=== PATIENT | male | born 1965 | race Hispanic/Latino ===

== ENCOUNTER 2017-12-04 18:36 | Inpatient (IN) | payer BC ==
[2017-12-04] MEDS ORDERED: Heparin25000 units/250ml 1/2NS 25,000 UNITS/250 ML BAG IV STA (19:24)
[2017-12-04] MEDS ORDERED: diltiaZEM IVPB 100mg in NS 100 ML IV PRN (19:24)
[2017-12-04 19:30] LABS: BASO # 0.04 K/mm3 (0.0-2.0); BASO % 0.4 % (0.0-3.0); EOS # 0.1 (0.0-0.7); EOS % 1.3 % (1.5-5.0); GRAN # 4.79 (1.4-6.5); GRAN % 53.4 % (50.0-68.0); HEMOGLOBIN 17.8 g/dL (14.0-18.0); LYMPH # 2.8 (1.2-3.4); LYMPH % 31.1 % (22.0-35.0); MEAN CELL VOLUME 91.3 fl (80.0-105.0); MEAN CORPUSCULAR HEMOGLOBIN 33.8 pg (25.0-35.0); MEAN CORPUSCULAR HGB CONC 37.1 g/dl (31.0-37.0); MEAN PLATELET VOLUME 9.6 fl (7.0-11.0); MONO # 1.2 (0.1-0.6); MONO % 13.8 % (1.0-6.0); RBC 5.26 10^6/uL (3.5-6.1); RED CELL DISTRIBUTION WIDTH 12.9 % (11.5-14.5)
--- NOTE | 2017-12-04 19:31 | ED PDOC ---
Arrival/HPI - General Chief Complaint: Chest Pain Time Seen by Provider: 12/04/17 19:04 Historian: Patient - History of Present Illness Narrative History of Present Illness (Text): 12/04/17 19:27 52yo male with pmhx of hypertension who was referred to ED by his PMD. Patient states he started having palpitation and diaphoretic this morning. He saw his PMD and had a new onset afib with rapid response on the EKG they did at the clinic. He denies chest pain, dizziness, nausea, headache, focal weakness, abdominal pain, vomiting, any other complaint. Past Medical History - Provider Review Nursing Documentation Reviewed: Yes - Infectious Disease Hx of Infectious Diseases: None - Cardiac Hx Cardiac Disorders: Yes Hx Hypertension: Yes - Pulmonary Hx Respiratory Disorders: No - Neurological Hx Neurological Disorder: No - HEENT Hx HEENT Disorder: No - Renal Hx Renal Disorder: No - Endocrine/Metabolic Hx Endocrine Disorders: No - Hematological/Oncological Hx Blood Disorders: No - Integumentary Hx Dermatological Disorder: No - Musculoskeletal/Rheumatological Hx Musculoskeletal Disorders: No - Gastrointestinal Hx Gastrointestinal Disorders: No - Genitourinary/Gynecological Hx Genitourinary Disorders: No - Psychiatric Hx Psychophysiologic Disorder: Yes Hx Anxiety: Yes Hx Depression: Yes Hx Substance Use: No Family/Social History - Physician Review Nursing Documentation Reviewed: Yes Family/Social History: Unknown Family HX Smoking Status: Never Smoked Hx Alcohol Use: Yes Frequency of alcohol use: Socially Hx Substance Use: No Allergies/Home Meds Allergies/Adverse Reactions: Allergies No Known Allergies Allergy (Verified 12/04/17 19:13) Review of Systems - Physician Review All systems were reviewed & negative as marked: Yes - Review of Systems Constitutional: Normal Eyes: Normal ENT: Normal Respiratory: Normal Cardiovascular: Palpitations. absent: Chest Pain, Edema, Calf Pain, EMANUEL Gastrointestinal: Normal Genitourinary Male: Normal Musculoskeletal: Normal Skin: Normal Neurological: Normal Endocrine: Normal Hemo/Lymphatic: Normal Psychiatric: Normal Physical Exam Vital Signs Reviewed: Yes Vital Signs Temp Pulse Resp BP Pulse Ox 12/04/17 19:58 107 H 143/96 H 12/04/17 19:03 98.2 F 108 H 18 155/90 H 98 Temperature: Afebrile Blood Pressure: Normal Pulse: Tachycardic Respiratory Rate: Normal Appearance: Positive for: Well-Appearing, Non-Toxic, Comfortable Pain Distress: None Mental Status: Positive for: Alert and Oriented X 3 - Systems Exam Head: Present: Atraumatic, Normocephalic Pupils: Present: PERRL Extroacular Muscles: Present: EOMI Conjunctiva: Present: Normal Mouth: Present: Moist Mucous Membranes Neck: Present: Normal Range of Motion Respiratory/Chest: Present: Clear to Auscultation, Good Air Exchange. No: Respiratory Distress, Accessory Muscle Use Cardiovascular: Present: Regular Rate and Rhythm, Normal S1, S2. No: Murmurs Abdomen: No: Tenderness, Distention, Peritoneal Signs Back: Present: Normal Inspection Upper Extremity: Present: Normal Inspection. No: Cyanosis, Edema Lower Extremity: Present: Normal Inspection. No: Edema Neurological: Present: GCS=15, CN II-XII Intact, Speech Normal Skin: Present: Warm, Dry, Normal Color. No: Rashes Psychiatric: Present: Alert, Oriented x 3, Normal Insight, Normal Concentration Medical Decision Making ED Course and Treatment: 12/04/17 20:41 52yo male referred to ED for a new onset Afib Pt was tachy on arrival and he continued to complain of palpitation. EKG A fib with RVR; LAD @ 112bpm. NSTEMI CXR NAD Lab was ordered and CE was negative Case was DW dr. Tapia who referred pt to ED and he recommended Cardizem bolus, drip and heparin drip. Pt was admitted to his service and he requested Dr. Weinberg consult. Plan was DW the pt and he agreed. - Lab Interpretations Lab Results: 12/04/17 19:20 12/04/17 19:20 Lab Results 12/04/17 19:20: Thyroxine (T4) 6.3, T3 Uptake 34.6, TSH 3rd Generation 3.18 12/04/17 19:20: Sodium 145, Potassium 3.6, Chloride 106, Carbon Dioxide 28, Anion Gap 15, BUN 9, Creatinine 0.8, Est GFR ( Amer) > 60, Est GFR (Non- Af Amer) > 60, Random Glucose 107, Calcium 9.5, Total Bilirubin 1.2, AST 48, ALT 39, Alkaline Phosphatase 71, Lactate Dehydrogenase 547, Total Creatine Kinase 66, Troponin I 0.05, Total Protein 8.1, Albumin 4.3, Globulin 3.8, Albumin/Globulin Ratio 1.1 12/04/17 19:20: PT 14.3 H, INR 1.25, APTT 31.4 12/04/17 19:20: WBC 9.0, RBC 5.26, Hgb 17.8, Hct 48.0, MCV 91.3, MCH 33.8, MCHC 37.1 H, RDW 12.9, Plt Count 128, MPV 9.6, Gran % 53.4, Lymph % (Auto) 31.1, Lyon % (Auto) 13.8 H, Eos % (Auto) 1.3 L, Baso % (Auto) 0.4, Gran # 4.79, Lymph # (Auto) 2.8, Lyon # (Auto) 1.2 H, Eos # (Auto) 0.1, Baso # (Auto) 0.04 - RAD Interpretation Radiology Orders: 12/04/17 19:14 CHEST PORTABLE [RAD] Stat - Medication Orders Current Medication Orders: diltiaZEM IVPB 100mg in NS (Cardizem 100mg In Ns) 100 mls @ 5 mls/hr IV .Q20H PRN; Protocol; 5 MG/HR PRN Reason: TITRATE PER MD ORDER Last Admin: 12/04/17 19:58 Dose: 5 mg/hr, 5 mls/hr eMAR Start Stop Document 12/04/17 19:58 IT (Rec: 12/04/17 19:58 IT [id number]) Intravenous Solution Start Date 12/04/17 Start Time 19:58 MAR Pulse Rate Document 12/04/17 19:58 IT (Rec: 12/04/17 19:58 IT [id number]) Pulse Rate Pulse Rate (60-90) 84 Titration Intervention Document 12/04/17 19:58 IT (Rec: 12/04/17 19:58 IT [id number]) Titration Intake Waste Amount 0 Container Volume 100 Titration Dosing Titration Dose 5 IV Rate 5 Intake/Decrease Started Discontinued Medications Diltiazem HCl (Cardizem) 10 mg IVP STAT STA Stop: 12/04/17 19:25 Last Admin: 12/04/17 19:58 Dose: 10 mg IVP Administration Document 12/04/17 19:58 IT (Rec: 12/04/17 19:58 IT [id number]) Charges for Administration # of IVP Administrations 1 MAR Pulse and Blood Pressure Document 12/04/17 19:58 IT (Rec: 12/04/17 19:58 IT [id number]) Pulse Pulse Rate (60-90) 107 Blood Pressure Blood Pressure (100/60-150/90) 143/96 Heparin Sodium/Sodium Chloride (Heparin 77323 Units/250ml 1/2 Normal Saline) 25 ,000 units in 250 mls @ 21.114 mls/hr IV .[id number] STA; 18 UNITS/KG/HR PRN Reason: Protocol Stop: 12/04/17 19:25 Last Admin: 12/04/17 20:26 Dose: 18 units/kg/hr, 21.114 mls/hr eMAR Start Stop Document 12/04/17 20:26 IT (Rec: 12/04/17 20:26 IT [id number]) Intravenous Solution Start Date 12/04/17 Start Time 20:26 Titration Intervention Document 12/04/17 20:26 IT (Rec: 12/04/17 20:26 IT [id number]) Titration Intake Waste Amount 0 Container Volume 250 Titration Dosing Titration Dose 18 IV Rate 21.114 Intake/Decrease Started Disposition/Present on Arrival - Present on Arrival Any Indicators Present on Arrival: No History of DVT/PE: No History of Uncontrolled Diabetes: No Urinary Catheter: No History of Decub. Ulcer: No History Surgical Site Infection Following: None - Disposition Have Diagnosis and Disposition been Completed?: Yes Diagnosis: New onset atrial fibrillation Disposition: HOSPITALIZED Disposition Time: 19:30 Patient Plan: Admission Patient Problems: Current Active Problems Problem Status Onset New onset atrial fibrillation Acute Condition: STABLE
[2017-12-04 19:35] LABS: INR 1.25; PARTIAL THROMBOPLASTIN TIME 31.4 Seconds (25.1-36.5); PROTHROMBIN TIME 14.3 SECONDS (9.4-12.5)
[2017-12-04 20:09] LABS: T4 6.3 ug/dL (5.5-11.0)
[2017-12-04 20:10] LABS: T3 UPTAKE 34.6 % (23.0-41.0)
[2017-12-04 20:13] LABS: ALB/GLOB RATIO 1.1 (1.1-1.8); ALBUMIN 4.3 g/dL (3.0-4.8); ALT/SGPT 39 U/L (7-56); AST/SGOT 48 U/L (17-59); BLOOD UREA NITROGEN 9 mg/dL (7-21); CALCIUM 9.5 mg/dL (8.4-10.5); GFR NON-AFRICAN AMERICAN > 60
[2017-12-04 20:25] LABS: TROPONIN I 0.05 ng/mL
[2017-12-04] MEDS ORDERED: Heparin25000 units/250ml 1/2NS 25,000 UNITS/250 ML BAG IV PRN (21:42)
--- NOTE | 2017-12-04 21:44 | ED PDOC ---
Arrival/HPI - General Chief Complaint: Chest Pain Time Seen by Provider: 12/04/17 19:04 Past Medical History - Infectious Disease Hx of Infectious Diseases: None - Cardiac Hx Cardiac Disorders: Yes Hx Hypertension: Yes - Pulmonary Hx Respiratory Disorders: No - Neurological Hx Neurological Disorder: No - HEENT Hx HEENT Disorder: No - Renal Hx Renal Disorder: No - Endocrine/Metabolic Hx Endocrine Disorders: No - Hematological/Oncological Hx Blood Disorders: No - Integumentary Hx Dermatological Disorder: No - Musculoskeletal/Rheumatological Hx Musculoskeletal Disorders: No - Gastrointestinal Hx Gastrointestinal Disorders: No - Genitourinary/Gynecological Hx Genitourinary Disorders: No - Psychiatric Hx Psychophysiologic Disorder: Yes Hx Anxiety: Yes Hx Depression: Yes Hx Substance Use: No Family/Social History Family/Social History: Unknown Family HX Smoking Status: Never Smoked Hx Alcohol Use: Yes Frequency of alcohol use: Socially Hx Substance Use: No Allergies/Home Meds Allergies/Adverse Reactions: Allergies No Known Allergies Allergy (Verified 12/04/17 19:13) Physical Exam Vital Signs Temp Pulse Resp BP Pulse Ox 12/04/17 19:58 107 H 143/96 H 12/04/17 19:03 98.2 F 108 H 18 155/90 H 98 Medical Decision Making ED Course and Treatment: 12/04/17 21:44 as per RN, the order for heparin needs to be adjusted to allow for titration. I basically ordered the typical heparin order in our current computer system - Lab Interpretations Lab Results: 12/04/17 19:20 12/04/17 19:20 Lab Results 12/04/17 19:20: Thyroxine (T4) 6.3, T3 Uptake 34.6, TSH 3rd Generation 3.18 12/04/17 19:20: Sodium 145, Potassium 3.6, Chloride 106, Carbon Dioxide 28, Anion Gap 15, BUN 9, Creatinine 0.8, Est GFR ( Amer) > 60, Est GFR (Non- Af Amer) > 60, Random Glucose 107, Calcium 9.5, Total Bilirubin 1.2, AST 48, ALT 39, Alkaline Phosphatase 71, Lactate Dehydrogenase 547, Total Creatine Kinase 66, Troponin I 0.05, Total Protein 8.1, Albumin 4.3, Globulin 3.8, Albumin/Globulin Ratio 1.1 12/04/17 19:20: PT 14.3 H, INR 1.25, APTT 31.4 12/04/17 19:20: WBC 9.0, RBC 5.26, Hgb 17.8, Hct 48.0, MCV 91.3, MCH 33.8, MCHC 37.1 H, RDW 12.9, Plt Count 128, MPV 9.6, Gran % 53.4, Lymph % (Auto) 31.1, [place] % (Auto) 13.8 H, Eos % (Auto) 1.3 L, Baso % (Auto) 0.4, Gran # 4.79, Lymph # (Auto) 2.8, [place] # (Auto) 1.2 H, Eos # (Auto) 0.1, Baso # (Auto) 0.04 - RAD Interpretation Radiology Orders: 12/04/17 19:14 CHEST PORTABLE [RAD] Stat - Medication Orders Current Medication Orders: diltiaZEM IVPB 100mg in NS (Cardizem 100mg In Ns) 100 mls @ 5 mls/hr IV .Q20H PRN; Protocol; 5 MG/HR PRN Reason: TITRATE PER MD ORDER Last Admin: 12/04/17 19:58 Dose: 5 mg/hr, 5 mls/hr eMAR Start Stop Document 12/04/17 19:58 IT (Rec: 12/04/17 19:58 IT [id number]) Intravenous Solution Start Date 12/04/17 Start Time 19:58 MAR Pulse Rate Document 12/04/17 19:58 IT (Rec: 12/04/17 19:58 IT [id number]) Pulse Rate Pulse Rate (60-90) 84 Titration Intervention Document 12/04/17 19:58 IT (Rec: 12/04/17 19:58 IT [id number]) Titration Intake Waste Amount 0 Container Volume 100 Titration Dosing Titration Dose 5 IV Rate 5 Intake/Decrease Started Heparin Sodium/Sodium Chloride (Heparin 19516 Units/250ml 1/2 Normal Saline) 25 ,000 units in 250 mls @ 21.114 mls/hr IV .[id number] PRN; Protocol; 18 UNITS/KG/HR PRN Reason: ADJUST RATE PER PROTOCOL Discontinued Medications Diltiazem HCl (Cardizem) 10 mg IVP STAT STA Stop: 12/04/17 19:25 Last Admin: 12/04/17 19:58 Dose: 10 mg IVP Administration Document 12/04/17 19:58 IT (Rec: 12/04/17 19:58 IT [id number]) Charges for Administration # of IVP Administrations 1 MAR Pulse and Blood Pressure Document 12/04/17 19:58 IT (Rec: 12/04/17 19:58 IT [id number]) Pulse Pulse Rate (60-90) 107 Blood Pressure Blood Pressure (100/60-150/90) 143/96 Heparin Sodium/Sodium Chloride (Heparin 97688 Units/250ml 1/2 Normal Saline) 25 ,000 units in 250 mls @ 21.114 mls/hr IV .[id number] STA; 18 UNITS/KG/HR PRN Reason: Protocol Stop: 12/04/17 19:25 Last Admin: 12/04/17 20:26 Dose: 18 units/kg/hr, 21.114 mls/hr eMAR Start Stop Document 12/04/17 20:26 IT (Rec: 12/04/17 20:26 IT [id number]) Intravenous Solution Start Date 12/04/17 Start Time 20:26 Titration Intervention Document 12/04/17 20:26 IT (Rec: 12/04/17 20:26 IT [id number]) Titration Intake Waste Amount 0 Container Volume 250 Titration Dosing Titration Dose 18 IV Rate 21.114 Intake/Decrease Started Disposition/Present on Arrival - Present on Arrival Any Indicators Present on Arrival: No History of DVT/PE: No History of Uncontrolled Diabetes: No Urinary Catheter: No History of Decub. Ulcer: No History Surgical Site Infection Following: None - Disposition Have Diagnosis and Disposition been Completed?: Yes Diagnosis: New onset atrial fibrillation Disposition: HOSPITALIZED Disposition Time: 23:31 Patient Plan: Admission Patient Problems: Current Active Problems Problem Status Onset New onset atrial fibrillation Acute Condition: STABLE
[2017-12-05 00:58] VITALS: BMI 33.1
[2017-12-05] MEDS ORDERED: Heparin25000 units/250ml 1/2NS 25,000 UNITS/250 ML BAG IV PRN (06:46)
--- NOTE | 2017-12-05 08:26 | CON ---
Copied To: Carlos A Xiong MD Attending MD: Carlos A Xiong MD DATE: 12/05/2017 INDICATIONS: Paroxysmal atrial fibrillation. HISTORY OF PRESENT ILLNESS: This is a 52-year-old male, smoker with a history of hypertension who woke up yesterday morning with palpitations, diaphoresis, not feeling well, anxious. He came to the Emergency Room and was found to have atrial fibrillation with rapid ventricular response. He was treated with IV Cardizem, admitted to telemetry. During the night, he reverted to sinus rhythm. This morning, he is comfortable in bed without chest pain or shortness of breath. There is no orthopnea, PND, syncope, presyncope, lightheadedness, dizziness, or vertigo. There is no edema, claudication, fever, chills, cough, sputum production, hemoptysis, abdominal pain, nausea, vomiting, diarrhea, constipation, or melena. PAST MEDICAL HISTORY: Notable for hypertension. He describes chronic anxiety. He drinks up to a pint of hard liquor at night on a daily basis. He smokes a pack of cigarettes per day. He has had cardiac evaluations in the past. In 2001, he apparently underwent a cardiac catheterization, which did not disclose coronary artery disease. About 2 years ago, he had a nuclear stress test, which was apparently unremarkable. There is no history of rheumatic fever, myocardial infarction, angina, congestive heart failure, arrhythmia, stroke, TIA, diabetes, or gout. MEDICATIONS: At the time of admission, are a bit unclear. He takes Wellbutrin, atenolol, and an additional medication, but he does not recall and it is not in the record. ALLERGIES: THERE ARE NO MEDICATION ALLERGIES. SOCIAL HISTORY: He lives at home. 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 He does not exercise and is fairly sedentary. He smokes cigarettes. He drinks alcohol at night on a daily basis. FAMILY HISTORY: Notable for atrial fibrillation. REVIEW OF SYSTEMS: A 10-point review of systems otherwise unremarkable except as noted above. PHYSICAL EXAMINATION: GENERAL: He is a well-developed man lying in bed on telemetry, in no acute distress. VITAL SIGNS: He is currently in sinus rhythm at 67 beats per minute. He is afebrile. Blood pressure 131/93, respirations 18, O2 sat 99% on room air. HEENT: Reveals no neck vein distention, thyromegaly, carotid bruit. Mucous membranes moist. Conjunctiva pink. NECK: Supple. LUNGS: Lung lee clear. HEART: Revealed irregular rhythm. Normal first and second heart sounds. PMI not palpable. ABDOMEN: Soft. Bowel sounds present. No mass, organomegaly, tenderness, rebound, guarding. No CVA tenderness. No palpable abdominal aortic aneurysm. EXTREMITIES: Revealed no cyanosis, clubbing, or edema. NEUROLOGICAL: He is awake, alert, and oriented. PSYCHIATRIC: Normal as to mood and affect. SKIN: Warm and dry. No rash or cellulitis. LABORATORY DATA AND IMAGING: EKG demonstrated atrial fibrillation with leftward axis, ST-T wave changes. Chest x-ray is not interpreted yet, it shows clear lung lee. No infiltrate or effusion by my reading. CBC is unremarkable. PT 14.3, INR 1.25, PTT 3.14, repeat PTT on heparin 114. Electrolytes: BUN, creatinine, blood sugars, LFTs unremarkable. CK 66, troponin 0.05. TFTs unremarkable. IMPRESSION: Cristhian Sosa is a 52-year-old smoker and drinker, who presents with paroxysmal atrial fibrillation with a history of hypertension, anxiety, who converted back to normal sinus rhythm during the night. At this time, I will repeat a troponin level, order an echocardiogram and an EKG. I will start him on metoprolol. We should get a list of his other medications. I have advised him to stop smoking and stop drinking alcohol. He will need some help with these issues. He has chronic anxiety, which requires treatment. He also complains of insomnia, which prompts him to drink alcohol at night. I will review his prior stress test. I will arrange an outpatient stress test for him. He could be out of bed to chair. We will check stool for occult blood. His CHADS score is 1. I will start him on Eliquis for the time being. I will discuss with you whether or not he is a good candidate for long-term anticoagulation. Carlos A Xiong MD BÁRBARA
--- NOTE | 2017-12-05 09:07 | CARD ---
APPROVED REPORT Date of service: 12/04/2017 EKG Measurement Heart [id number] <Conclusion> Atrial fibrillation with rapid ventricular response Left axis deviation/LAHB PRWP V 1 - 6 Moderate voltage criteria for LVH, may be normal variant Possible inferior infarct, age undetermined STTW changes
--- NOTE | 2017-12-05 09:22 | CARD ---
APPROVED REPORT Date of service: 12/05/2017 EKG Measurement Heart [id number] <Conclusion> Normal sinus rhythm, new PRWP V 1 - 6 LAD/LAHB LVH STTW changes
--- NOTE | 2017-12-05 09:33 | RAD ---
Date of service: 12/04/2017 HISTORY: admission COMPARISON: 05/06/2013 FINDINGS: LUNGS: No active pulmonary disease. PLEURA: No significant pleural effusion identified, no pneumothorax apparent. CARDIOVASCULAR: Normal. OSSEOUS STRUCTURES: No significant abnormalities. VISUALIZED UPPER ABDOMEN: Normal. OTHER FINDINGS: None. IMPRESSION: No active disease.
[2017-12-05 18:30] VITALS: RESP 18
--- NOTE | 2017-12-06 05:28 | CON ---
Copied To: Norma Red MD Attending MD: Norma Red MD DATE: 12/05/2017 HISTORY OF PRESENT ILLNESS: Shortly, the patient is 52-year-old male with reported history of questionable attention deficit disorder. The patient also has mood spectrum disorder as well as anxiety. Also the patient has alcohol use disorder. The patient was admitted on the medical site for evaluation of palpitation and diaphoresis. The patient was diagnosed with AFib. Psych consult was called for medication adjustment and evaluation. This investment underwriter had prolonged conversation with Dr. Tapia, primary care physician. As per Dr. Tapia, the patient was recently diagnosed with attention deficit disorder and was prescribed Vyvanse [address] Musa Betancourt. The patient was not doing well on that medication and this medication was changed to Wellbutrin. Dr. Tapia is very concerned about alcohol abuse, insomnia as well as medical issues. This investment underwriter evaluated the patient. 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 The patient reported that he was very stressed out at his work. Also the patient was having family issues. He was going through divorce. The patient also had issues with selling his mother's house and over summer it was very stressful for him. The patient reported that his mind was racing, he was not able to sleep and started to drink alcohol in order to be able to relax and sleep. Apparently the patient started to notice that he is developing tolerance and he needs to have more alcohol in order to get the same effect. The patient reported at times he feels depressed, at times he feels hopeless, at times he feels helpless, but denied any thoughts of killing himself. The patient reported that he was diagnosed with attention deficit disorder by Dr. Betancourt recently. The patient has episodes of irritable mood, mind racing, inability to sleep in the past which lasted more than 2 weeks, but the patient was able to go back to work and perform, but it will take him a lot of efforts. The patient denied history of being admitted to Psychiatric Inpatient Unit. The patient also denied history of suicidal attempts in the past. Vital signs are stable. Temperature 98.1, pulse is 71, blood pressure 153/97, respiration 26 and saturation is 99, 97. Medications reviewed. The patient is on Xanax 0.5 mg 4 times a day schedule. The patient is on Librium, Lopressor. This investment underwriter will start Sonata. The patient was on Wellbutrin in the past but this is up to the medical team if they want to start this medication or not. This investment underwriter educated the patient about naltrexone. The patient was also educated about Sonata. The patient was educated about bipolar disorder because most likely the patient has bipolar type 2. The patient verbalized understanding. Labs reviewed. Coagulation reviewed. Chemistry reviewed, seems to be within normal limits. MENTAL STATUS EXAMINATION: The patient presented to be alert and oriented, pleasant, cooperative. There is no upper extremity shakes. The patient appears to be with constricted affect. Mood described, "I was very stressed out lately". Thought process seems to be goal directed. Thought content, the patient denied visual, auditory, or tactile hallucinations. Denied paranoid ideation. The patient denied thoughts of harming himself or others. Denied intent or plan. IMPRESSION: Most likely the patient has bipolar spectrum disorder, bipolar type 2, rule out adjustment disorder. This investment underwriter did not see any signs of attention deficit disorder. Moreover attention deficit will be diagnosed in early age. 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 PLAN: Definitely the patient's medications need to be adjusted. The patient was educated about possible diagnosis of bipolar disorder. The patient wants to follow up with Dr. Musa Betancourt. This investment underwriter advised the patient to discuss options with his outpatient psychiatrist. The patient does not want to sign himself into the Psychiatric Inpatient Unit. The patient was advised to take medication as prescribed. The patient was advised not to take any stimulants. The patient was on Wellbutrin 150 mg daily, this is up to his primary care physician. Xanax should be continued. Sonata, this investment underwriter implemented; risks, benefits and alternatives were discussed with the patient; the patient is willing to try that medication. Naltrexone was also discussed. 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 This investment underwriter advised to see Dr. Musa Betancourt and [facility]. The patient verbalized understanding. In case of the patient had acute change in mental status, please reconsult, but meanwhile the patient seems to be not in any imminent danger to self or others. Assessment was endorsed to Dr. Tapia, primary care physician. This investment underwriter will sign off. Should you have any questions, give me a call back. Thank you very much. Norma Red MD [email or web address]
--- NOTE | 2017-12-06 07:15 | CARD ---
APPROVED REPORT Date of service: 12/05/2017 EXAM: Two-dimensional and M-mode echocardiogram with Doppler and color Doppler. INDICATION PAF 2D DIMENSIONS Left Atrium (2D)5.4 (1.6-4.0cm)IVSd1.7 (0.7-1.1cm) LVDd4.9 (3.9-5.9cm)PWd1.5 (0.7-1.1cm) LVDs3.2 (2.5-4.0cm)FS (%) 34.5 % LVEF (%)63.5 (>50%) M-Mode DIMENSIONS Aortic Root4.00 (2.2-3.7cm)Aortic Cusp Exc.2.20 (1.5-2.0cm) Aortic Valve AoV Peak Teavmsjw768.0cm/sAoV VTI48.7cmAO Peak GR.19mmHg LVOT Peak Vnmhuguy367.0cm/sLVOT VTI34.40cmAO Mean GR.11mmHg Mitral Valve MV E Yglxnpuw75.1cm/sMV A Bqeddsrt20.6cm/sE/A ratio1.0 TDI Lateral E' Peak V7.21cm/sMedial E' Peak V5.07cm/sE/Lateral E'9.7 E/Medial E'13.8 Pulmonary Valve PV Peak Amuldcwt88.7cm/sPV Peak Grad.4mmHg Tricuspid Valve TR Peak Pezhdpdq308yo/sRAP XYEQCAFU40xxIyTX Peak Gr.16mmHg PYFG21oiOx LEFT VENTRICLE The left ventricle is normal size. Proximal septal thickening is noted. The echo findings are consistent with hypertrophic cardiomyopathy. The echo findings are consistent with left ventricular outflow obstruction. The left ventricular function is normal. The left ventricular ejection fraction is within the normal range. There is normal LV segmental wall motion. RIGHT VENTRICLE The right ventricle is normal size. The right ventricular systolic function is normal. ATRIA The left atrium is moderately dilated. The right atrium size is normal. The interatrial septum is intact with no evidence for an atrial septal defect. AORTIC VALVE The aortic valve is normal in structure. There is no aortic valvular stenosis. MITRAL VALVE The mitral valve is normal in structure. Mitral regurgitation is mild. TRICUSPID VALVE The tricuspid valve is normal in structure. PULMONIC VALVE The pulmonary valve is normal in structure. GREAT VESSELS The aortic root is normal in size. The IVC is normal in size and collapses >50% with inspiration. PERICARDIAL EFFUSION There is no pleural effusion. There is no pericardial effusion. <Conclusion> Dilated LA. Normal LV size and systolic function. Asymmetric septal hypertrophy with resting LV outflow tract gradient of 19 m Hg consistent with IHSS. Mild MR.
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
--- NOTE | 2017-12-06 22:06 | PN ---
Copied To: Cristhian Sinclair MD Attending MD: Cristhian Sinclair MD DATE: 12/06/2017 SUBJECTIVE: The patient is seen lying in bed on telemetry. He remains in sinus rhythm and is comfortable. He states he is committed to stopping tobacco and alcohol abuse. He remains on beta-eliazar and Eliquis. CURRENT MEDICATIONS: Include Eliquis 5 mg b.i.d., Librium p.r.n., Lopressor 25 mg b.i.d., Sonata and Xanax 0.5 mg four times a day. PHYSICAL EXAMINATION GENERAL: He is an anxious-appearing middle-aged man. VITAL SIGNS: Blood pressure is 130/76 with a pulse of 66 and sinus, respirations are 16. He is afebrile. HEENT: No JVD. CHEST: Few scattered rhonchi. HEART: PMI displaced laterally with a systolic murmur noted at the left sternal border. ABDOMEN: Soft, nontender with normoactive bowel sounds. EXTREMITIES: No edema. DIAGNOSTIC DATA: His echocardiogram reveals dilated left atrium with normal LV size and systolic function, asymmetric septal hypertrophy is present with a resting LV outflow tract gradient of 19 mmHg and mild mitral regurgitation was noted. IMPRESSION: 1. Paroxysmal atrial fibrillation, currently in sinus rhythm. 2. Hypertrophic cardiomyopathy. 3. Mild mitral regurgitation. 4. History of tobacco and alcohol abuse. 5. Possible bipolar disorder. RECOMMENDATIONS: Beta-eliazar therapy and Eliquis will be continued for now. If he has no evidence of recurrent atrial fibrillation, switching from an oral anticoagulant aspirin may be adequate. An outpatient stress test is advised. Continued outpatient cardiac followup regarding his hypertrophic cardiomyopathy and paroxysmal atrial fibrillation is advised as well. We will be happy to follow and make further recommendations as appropriate. Cristhian Sinclair MD
[2017-12-07 05:53] VITALS: O2SAT 97
--- NOTE | 2017-12-07 07:28 | CP.PCM.PN ---
Subjective - Date & Time of Evaluation Date of Evaluation: 12/07/17 Time of Evaluation: 07:00 - Subjective Subjective: Stable on 2R. No CP or SOB. V/S noted. RSR PE: Lungs: clear Cor.: S1S2, sys. murmur Abd.: soft Ext.: no edema Neuro.: alert Echo noted: NL LV fx., LVH with DEVIN, mild MR Objective - Vital Signs/Intake and Output Vital Signs (last 24 hours): Temp Pulse Resp BP Pulse Ox 98.2 F 71 18 145/94 H 97 12/07/17 05:52 12/07/17 05:52 12/07/17 05:52 12/07/17 05:52 12/07/17 05:52 Intake and Output: 12/07/17 12/07/17 06:59 18:59 Intake Total 540 Balance 540 - Medications Medications: Current Medications Alprazolam (Xanax) 0.5 mg PO QID SEGUNDO PRN Reason: Protocol Last Admin: 12/06/17 22:14 Dose: 0.5 mg Apixaban (Eliquis) 5 mg PO BID SEGUNDO PRN Reason: Protocol Last Admin: 12/06/17 17:47 Dose: 5 mg Chlordiazepoxide (Librium) 50 mg PO Q8 PRN; Protocol PRN Reason: Restlessness Lisinopril (Zestril) 20 mg PO DAILY SEGUNDO Metoprolol Tartrate (Lopressor) 50 mg PO BID SEGUNDO Zaleplon (Sonata) 5 mg PO HS [facility] Last Admin: 12/06/17 22:14 Dose: 5 mg - Labs Labs: PT 14.3 SECONDS (9.4-12.5) H 12/04/17 19:20 INR 1.25 12/04/17 19:20 APTT 114.1 Seconds (25.1-36.5) H* 12/05/17 02:18 Assessment and Plan - Assessment and Plan (Free Text) Assessment: Palpitations PAF Anxiety HBP LVH with DEVIN on echo, mild MR, NL LV fx. H/O cath 2002: Nl cors. H/O neg nuclear ETT ~ 2 years ago. + tobacco + daily ETOH Plan: Continue metoprolol, Eliquis, lisnopril per Dr. Tapia and Psych. D/C tobacco and ETOH. OK for D/C home with out-pt f/u and nuclear stress testing. Titrate meds on an out-pt. basis. VAIBHAV diet. Needs more physical activity/exercise program
--- NOTE | 2017-12-07 11:05 | PN ---
Copied To: Tru Tapia MD Attending MD: Tru Tapia MD DATE: 12/06/2017 SUBJECTIVE: The patient is a 52-year-old male who was admitted to the [facility] 2 days ago with palpitations, elevated blood pressure. He is known to have a history of hypertension, renal colic. He is status post cholecystectomy, deviated septum surgery, has bilateral carpal tunnel and lumbosacral spine and herniated disc. During his hospital stay, the patient says that prior to hospitalization, his diastolic blood pressure at times could be as high as 120-130 mmHg. EKG showed he was in atrial fibrillation of new onset on admission. When seen, the patient is lying comfortably. He has no complaints. He denies chest pain, palpitations. He does still feels slightly short of breath on ambulation. His significant other is at bedside. He was seen and evaluated by Dr. Xiong, his test engineer as well as Dr. Norma Red, the psychiatrist. PHYSICAL EXAMINATION: VITAL SIGNS: Today, his blood pressure is 125/94. LUNGS: His lungs are clear anteriorly. HEART: Regular. ABDOMEN: Soft and nontender on physical exam. As the diastolic blood pressure is still elevated, I will at this point increase his metoprolol from 25-50 mg twice a day. I will also add on lisinopril 20 mg once a day. We will continue to follow the patient closely. Case to be discussed with his test engineer, Dr. Xiong and Dr. Sinclair to regulate his blood pressure. I feel because of stress at home and on the job, attention should be made to his anxiety as well to better control that as it may very well be driving his blood pressure up. We are continuing with his Xanax. Dr. Green's consult note is appreciated. Tru Tapia MD
[2017-12-07 11:25] VITALS: BP 143/97; PULSE 65; TEMP 98
--- NOTE | 2017-12-08 08:07 | DS ---
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 PAST MEDICAL HISTORY: Significant also for anxiety and depression, work stress with recent divorce, children in college, caring for ill mother, sale of her house and change in job position with additional responsibility. The patient has been smoking a pack of cigarettes a day, increasing his alcohol consumption when the above symptoms occurred. In the past, he has been taking Vyvanse from his psychiatrist, it was recently filled. The patient states that he has not been taking it recently. COURSE OF HOSPITAL STAY: Admitted to medical floor. The patient was treated with IV Cardizem in the ER, then a drip. He converted spontaneously to sinus rhythm, being seen by his alternative energy technician, Dr. Xiong who did a stress test and an echo within the past year. His medications were adjusted. He was started on Eliquis. He was seen by psychiatrist, Dr. Green to discuss his medications. She agreed that he should avoid Vyvanse and other such stimulants in the future in view of his new atrial fibrillation. He is hemodynamically stable, well controlled. I talked to the patient at length on admission and the next day and then again today regarding alcohol abstinence, lifestyle, stress management, etc. He is ready for discharge to home. Prescriptions were called to his drugstore for Eliquis 5 mg b.i.d., metoprolol tartarate 50 mg b.i.d. and Sonata for sleep as well as lisinopril for blood pressure control. He will follow up with me in the office tomorrow and bring all his medicines. I will see him again probably after the long holiday weekend. I will talk about return to work then. FINAL DISCHARGE DIAGNOSES: 1. New-onset atrial fibrillation. 2. Hypertension. 3. Tobacco use. 4. History of depression/anxiety. Sage Tapia MD
== END 2017-12-07 12:47 | disposition home or self-care (01) | DRG 310 ==
LOC: ED 18:36 → ERH 19:22 → 2RNO 22:11
PROVIDERS: ADMIT Internal Medicine; ATTEND Internal Medicine
DX: I48.0 Paroxysmal atrial fibrillation (principal); I10 Essential (primary) hypertension; I42.2 Other hypertrophic cardiomyopathy; I34.0 Nonrheumatic mitral (valve) insufficiency; F10.10 Alcohol abuse, uncomplicated; F32.9 Major depressive disorder, single episode, unspecified; G47.00 Insomnia, unspecified; F90.9 Attention-deficit hyperactivity disorder, unspecified type; F41.9 Anxiety disorder, unspecified; F17.210 Nicotine dependence, cigarettes, uncomplicated; Z90.49 Acquired absence of other specified parts of digestive tract; Z82.0 Family history of epilepsy and other diseases of the nervous system; Z83.3 Family history of diabetes mellitus

== ENCOUNTER 2018-08-02 17:32 | Inpatient (IN) | payer BC ==
[2018-08-02] MEDS ORDERED: Multivitamin (MVI) 10 ML, Thiamine 100 MG, Folic Acid 1 MG in Sodium Chloride 0.9% 1,00... IV ONE (18:03)
[2018-08-02 18:14] VITALS: BMI 36.6
--- NOTE | 2018-08-02 18:29 | ED PDOC ---
Arrival/HPI - General Time Seen by Provider: 08/02/18 17:34 Historian: Patient - History of Present Illness Narrative History of Present Illness (Text): 08/02/18 17:34 Pt is a 52 year old male, with history of anxiety and depression, who requests detox. Patient informs of binge drinking for the last couple of weeks. He informs of multiple episodes of depression. Denies suicidal or homicidal ideation. Patient was seen by Dr. Tapia and was advised to reduce alcohol consumption and adhere to medications. Patient was told by where he is employed to present to [facility] for detox. Patient denies headache, dizziness, fall/trauma, vision changes, abdominal pain, nausea, vomiting, or any other complaints. Time/Duration: < month (binge drinking since couple of weeks) Symptom Onset: Gradual Activities at Onset: Light Context: Home Past Medical History - Provider Review Nursing Documentation Reviewed: Yes - Infectious Disease Hx of Infectious Diseases: None - Cardiac Hx Cardiac Disorders: Yes Hx Hypertension: Yes - Pulmonary Hx Respiratory Disorders: No - Neurological Hx Neurological Disorder: No - HEENT Hx HEENT Disorder: No - Renal Hx Renal Disorder: No - Endocrine/Metabolic Hx Endocrine Disorders: No - Hematological/Oncological Hx Blood Disorders: No - Integumentary Hx Dermatological Disorder: No - Musculoskeletal/Rheumatological Hx Musculoskeletal Disorders: No - Gastrointestinal Hx Gastrointestinal Disorders: No - Genitourinary/Gynecological Hx Genitourinary Disorders: No - Psychiatric Hx Psychophysiologic Disorder: Yes Hx Anxiety: Yes Hx Depression: Yes Hx Substance Use: No Family/Social History - Physician Review Nursing Documentation Reviewed: Yes Family/Social History: Unknown Family HX Smoking Status: Never Smoked Hx Alcohol Use: Yes Hx Substance Use: No Allergies/Home Meds Allergies/Adverse Reactions: Allergies No Known Allergies Allergy (Verified 12/04/17 19:13) Home Medications: Home Meds Medication Instructions Recorded Confirmed ALPRAZolam [Xanax] 1 mg PO TID 08/02/18 08/02/18 Escitalopram [Lexapro] 20 mg PO DAILY 08/02/18 08/02/18 Furosemide [Lasix] 20 mg PO DAILY 08/02/18 08/02/18 Metoprolol Tartrate [Lopressor] 50 mg PO DAILY 08/02/18 08/02/18 diltiaZEM [Cardizem] 60 mg PO TID 08/02/18 08/02/18 Review of Systems - Physician Review All systems were reviewed & negative as marked: Yes - Review of Systems Constitutional: Other (alcohol abuse) Eyes: absent: Vision Changes Gastrointestinal: absent: Abdominal Pain, Nausea, Vomiting Musculoskeletal: absent: Other (fall/trauma) Neurological: absent: Headache, Dizziness Psychiatric: absent: Suicidal Ideation, Other (homicidal ideation) Physical Exam Vital Signs Reviewed: Yes Vital Signs Pulse BP 08/02/18 18:18 135 H 181/93 H Blood Pressure: Hypertensive Pulse: Tachycardic Appearance: Positive for: Well-Appearing, Comfortable Pain Distress: None Mental Status: Positive for: Alert and Oriented X 3 - Systems Exam Head: Present: Atraumatic, Normocephalic Pupils: Present: PERRL Extroacular Muscles: Present: EOMI Conjunctiva: Present: Normal Mouth: Present: Moist Mucous Membranes Neck: Present: Normal Range of Motion Respiratory/Chest: Present: Clear to Auscultation, Good Air Exchange. No: Respiratory Distress, Accessory Muscle Use, Wheezes, Rales, Rhonchi Cardiovascular: Present: Normal S1, S2, Irregular Rhythm, Tachycardic. No: Murmurs, Rub, Gallop Abdomen: Present: Normal Bowel Sounds. No: Tenderness, Distention, Peritoneal Signs, Rebound, Guarding Back: Present: Normal Inspection Upper Extremity: Present: Normal Inspection, Normal ROM, NORMAL PULSES, Neurovascularly Intact, Capillary Refill < 2s. No: Cyanosis, Edema Lower Extremity: Present: Normal Inspection, NORMAL PULSES, Normal ROM, Neurovascularly Intact, Capillary Refill < 2 s. No: Edema Neurological: Present: GCS=15, CN II-XII Intact, Speech Normal Skin: Present: Warm, Dry, Normal Color. No: Rashes Psychiatric: Present: Alert, Oriented x 3, Normal Insight, Normal Concentration Medical Decision Making ED Course and Treatment: 08/02/18 17:34 Impression: Patient is a 52 year old male, with a past medical history of anxiety and depression, who presents to the emergency department requesting alcohol detox. Plan: -- Labs -- Chest X- Ray -- IV Fluids -- Cardizem -- Librium -- Urinalysis -- Reassess and disposition Prior Visits: Notes and results from previous visits were reviewed. Progress Notes: - RAD Interpretation Narrative RAD Interpretations (Text): 08/02/18 18:55 Chest X-Ray shows: IMPRESSION: No focal consolidation. Right hilar prominence may be exaggerated by patient obliquity. Radiology Orders: 08/02/18 18:01 CHEST PORTABLE [RAD] Stat Revenue Field Auditor: Radiologist - Medication Orders Current Medication Orders: Multivitamins/Vitamin C 10 ml/Thiamine HCl 100 mg/ Folic Acid 1 mg/ Sodium Chloride 1,011.2 mls @ 100 mls/hr IV .Q10H7M ONE Stop: 08/03/18 04:09 Discontinued Medications Chlordiazepoxide (Librium) 50 mg PO STAT STA; Protocol Stop: 08/02/18 18:06 Last Admin: 08/02/18 18:17 Dose: 50 mg Diltiazem HCl (Cardizem) 15 mg IVP STAT STA Stop: 08/02/18 18:03 Diltiazem HCl (Cardizem) 20 mg IVP STAT STA Stop: 08/02/18 18:03 Last Admin: 08/02/18 18:18 Dose: 20 mg IVP Administration Document 08/02/18 18:18 TROIL (Rec: 08/02/18 18:18 [facility]ER-20) Charges for Administration # of IVP Administrations 1 MAR Pulse and Blood Pressure Document 08/02/18 18:18 TROIL (Rec: 08/02/18 18:18 [facility]) Pulse Pulse Rate (60-90) 135 Blood Pressure Blood Pressure (100/60-150/90) 181/93 - Scribe Statement The provider has reviewed the documentation as recorded by the Scribednise Harper All medical record entries made by the Mary were at my direction and personally dictated by me. I have reviewed the chart and agree that the record accurately reflects my personal performance of the history, physical exam, medical decision making, and the department course for this patient. I have also personally directed, reviewed, and agree with the discharge instructions and disposition. Disposition/Present on Arrival - Present on Arrival History of DVT/PE: No History of Uncontrolled Diabetes: No Urinary Catheter: No History Surgical Site Infection Following: None - Disposition
[2018-08-02 18:39] LABS: BASO # 0.03 {null, K/mm3} (0.0-2.0); BASO % 0.4 % (0.0-3.0); EOS # 0.1 (0.0-0.7); EOS % 1.5 % (1.5-5.0); HEMOGLOBIN 16.5 g/dL (14.0-18.0); LYMPH # 3.1 (1.2-3.4); MEAN CELL VOLUME 89.1 fl (80.0-105.0); MEAN CORPUSCULAR HEMOGLOBIN 32.2 pg (25.0-35.0); MEAN CORPUSCULAR HGB CONC 36.2 g/dl (31.0-37.0); MEAN PLATELET VOLUME 9.3 fl (7.0-11.0); MONO # 0.8 (0.1-0.6); MONO % 12.1 % (1.0-6.0); RBC 5.12 {null, 10^6/uL} (3.5-6.1); RED CELL DISTRIBUTION WIDTH 12.7 % (11.5-14.5); WHITE BLOOD COUNT 6.7 {null, 10^3/uL} (4.5-11.0)
[2018-08-02 18:49] LABS: ALB/GLOB RATIO 1.2 (1.1-1.8); ALT/SGPT 30 U/L (7-56); AST/SGOT 52 U/L (17-59); BLOOD UREA NITROGEN 18 mg/dL (7-21); CALCIUM 8.5 mg/dL (8.4-10.5); GFR NON-AFRICAN AMERICAN > 60
[2018-08-02] MEDS ORDERED: diltiaZEM IVPB 100mg in NS 100 ML IV ONE (18:50)
[2018-08-02 18:51] LABS: ACETAMINOPHEN < 10.0 ug/ml (10.0-20.0); SALICYLATE < 1 mg/dL (2.0-20.0)
--- NOTE | 2018-08-02 18:59 | RAD ---
HISTORY: psych COMPARISON: Chest x-ray performed 12/04/17 TECHNIQUE: Chest, one view. FINDINGS: Examination limited by habitus and patient obliquity. LUNGS: Right hilar prominence. No focal consolidation. Please note that chest x-ray has limited sensitivity for the detection of pulmonary masses. PLEURA: No significant pleural effusion identified. No definite pneumothorax . CARDIOVASCULAR: Heart size appears top normal. No significant atherosclerotic calcification present. OSSEOUS STRUCTURES: No acute osseous abnormality identified. VISUALIZED UPPER ABDOMEN: Unremarkable. OTHER FINDINGS: None. IMPRESSION: No focal consolidation. Right hilar prominence may be exaggerated by patient obliquity.
[2018-08-02 20:39] LABS: PH,URINE 6.5 (4.7-8.0); URINE BILIRUBIN NEGATIVE (NEGATIVE); URINE BLOOD TRACE-LYSED (NEGATIVE); URINE GLUCOSE (UA) NEGATIVE (NEGATIVE); URINE LEUKOCYTE ESTERASE NEGATIVE Leu/uL (NEGATIVE); URINE PROTEIN 100 mg/dL (<30 mg/dL); URINE UROBILINOGEN 0.2 E.U./dL (<1 E.U./dL)
[2018-08-02 20:40] LABS: URINE APPEARANCE CLEAR (CLEAR); URINE COLOR YELLOW (YELLOW)
[2018-08-02 20:51] LABS: BARBITURATES, UR NEGATIVE (NEGATIVE); BENZODIAZEPINES, UR POSITIVE (NEGATIVE); OPIATES, UR NEGATIVE (NEGATIVE); PHENCYCLIDINE, UR NEGATIVE (NEGATIVE)
--- NOTE | 2018-08-03 06:53 | CP.PCM.PN ---
Subjective - Date & Time of Evaluation Date of Evaluation: 08/03/18 Time of Evaluation: 06:53 - Subjective Subjective: See my 07:50 note. Objective - Vital Signs/Intake and Output Vital Signs (last 24 hours): Temp Pulse Resp BP Pulse Ox 98.0 F 97 H 19 121/70 98 08/03/18 00:01 08/03/18 02:00 08/03/18 00:01 08/03/18 00:01 08/03/18 00:01 - Medications Medications: Current Medications diltiaZEM IVPB 100mg in NS (Cardizem 100mg In Ns) 100 mls @ 5 mls/hr IV .Q20H ONE Stop: 08/03/18 14:49 Last Admin: 08/02/18 19:38 Dose: 5 mls/hr Lorazepam (Ativan) 1 mg IVP Q6H PRN; Protocol PRN Reason: Anxiety - Labs Labs: 08/02/18 18:00 08/02/18 18:00
--- NOTE | 2018-08-03 07:55 | CP.PCM.PN ---
Subjective - Date & Time of Evaluation Date of Evaluation: 08/03/18 Time of Evaluation: 07:50 - Subjective Subjective: I was asked to co-sign order of Ativan. Patient was seen at bedside. As per nurse attending patient Ativan was not given. Patient states that he was anxious all night , was not able to fall asleep, he could have Ativan now. Has no other complaints. Medical record was reviewed. This 52 year old white male was admitted with a intent to come for detox.Did not offer any other symptoms. Has PMH of anxiety, depression, obesity,HTN,alcohol abuse. Objective - Vital Signs/Intake and Output Vital Signs (last 24 hours): Temp Pulse Resp BP Pulse Ox 97.6 F 60 20 155/92 H 93 L 08/03/18 06:00 08/03/18 06:00 08/03/18 06:00 08/03/18 06:00 08/03/18 06:00 Intake and Output: 08/03/18 08/03/18 06:59 18:59 Intake Total 540 Output Total 1 Balance 539 - Medications Medications: Current Medications Apixaban (Eliquis) 5 mg PO BID SEGUNDO; Protocol Diltiazem HCl (Cardizem) 60 mg PO TID SEGUNDO Escitalopram Oxalate (Lexapro) 20 mg PO DAILY SEGUNDO Furosemide (Lasix) 20 mg PO DAILY SEGUNDO diltiaZEM IVPB 100mg in NS (Cardizem 100mg In Ns) 100 mls @ 5 mls/hr IV .Q20H ONE Stop: 08/03/18 14:49 Last Admin: 08/02/18 19:38 Dose: 5 mls/hr Lorazepam (Ativan) 1 mg IVP Q6H PRN; Protocol PRN Reason: Anxiety Last Admin: 08/03/18 07:33 Dose: 1 mg - Labs Labs: 08/02/18 18:00 08/02/18 18:00 - Constitutional Appears: Well, No Acute Distress - Head Exam Head Exam: ATRAUMATIC, NORMAL INSPECTION, NORMOCEPHALIC - Eye Exam Eye Exam: Normal appearance - ENT Exam ENT Exam: Normal External Ear Exam - Neck Exam Neck Exam: Normal Inspection - Respiratory Exam Respiratory Exam: NORMAL BREATHING PATTERN - Cardiovascular Exam Cardiovascular Exam: absent: JVD - GI/Abdominal Exam GI & Abdominal Exam: absent: Distended - Rectal Exam Rectal Exam: Deferred - Exam Additional comments: Deferred. - Extremities Exam Extremities Exam: Normal Inspection - Back Exam Back Exam: NORMAL INSPECTION - Neurological Exam Neurological Exam: Alert, Awake, Oriented x3 - Psychiatric Exam Psychiatric exam: Normal Affect, Normal Mood - Skin Skin Exam: Normal Color Assessment and Plan - Assessment and Plan (Free Text) Assessment: Anxiety. Depression. Alcohol abuse. Obesity-36.6Kg/m2. Plan: Ativa 1 mg IV Q6H PRN was ordered by resident physician.
--- NOTE | 2018-08-03 11:39 | CON ---
DATE: 08/03/2018 CONSULTATION REPORT REQUESTING PHYSICIAN: Dr. Tapia. REASON FOR CONSULTATION: Rapid atrial fibrillation. HISTORY OF PRESENT ILLNESS: This is a 52-year-old man known to me with a history of longstanding alcohol abuse and paroxysmal atrial fibrillation, admitted with palpitations. He has been drinking heavily and is requesting admission for alcohol abuse detoxification as well. He has had several admissions for this in the past. He has had a longstanding history of alcohol abuse with periods of abstinence over the years. He has had paroxysmal atrial fibrillation in the past as well. He has already got cardiac evaluation in the past including catheterization which was unremarkable and a stress test several years ago which was normal. He is seen lying in bed on telemetry. He is on intravenous diltiazem infusion. He does have a history of chronic anxiety and depression. He has been binge drinking for the past several weeks. PAST HISTORY: Notable for the problems mentioned above. HOME MEDICATIONS: His medications at home included Xanax, Lexapro, Lasix 20 mg daily, Toprol 50 mg daily, and diltiazem 60 mg t.i.d. ALLERGIES: NONE. 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 He recently resumed smoking as well. He does drink heavily as mentioned. He does not exercise regularly. FAMILY HISTORY: Notable for several family members with atrial fibrillation. REVIEW OF SYSTEMS: A 12-point review of systems is notable for increasing fatigue with beta eliazar use. He denies any recent chest pain. The rest of the review of systems is, otherwise, unremarkable. PHYSICAL EXAMINATION: GENERAL: He is an overweight, middle-aged man. VITAL SIGNS: His blood pressure is 156/90 with a pulse of 60 in atrial fibrillation, respirations are 16. He is afebrile. HEENT: Normocephalic, atraumatic. NECK: Thick. No JVD. CHEST: A few scattered rhonchi heard. HEART: PMI displaced laterally. Rhythm is irregularly irregular, a systolic murmur is present at the left sternal border. ABDOMEN: Soft, nontender, mildly obese. Normoactive bowel sounds. EXTREMITIES: No clubbing, cyanosis, or edema. SKIN: Warm and dry. PSYCHIATRIC: Normal mood and affect. NEUROLOGIC: Alert and oriented x3. No gross motor or sensory deficits notable. DIAGNOSTIC DATA: White count 6.7, hemoglobin and hematocrit 16.5 and 45.6, with a platelet count of 174,000. Potassium 3.9, BUN and creatinine 18 and 0.8. AST and ALT 52 and 30. Toxicology screen positive for benzodiazepines and alcohol level of 226. Electrocardiogram reveals atrial fibrillation with a rapid ventricular response and secondary ST-T changes. Chest x-ray reveals normal cardiac silhouette with clear lung lee. IMPRESSION: 1. Atrial fibrillation with rapid ventricular response likely secondary to acute alcohol intoxication. 2. Alcohol dependence, longstanding. 3. History of hypertension. 4. History of anxiety/depression. RECOMMENDATIONS: IV diltiazem will be discontinued at this time and oral diltiazem will be resumed. Eliquis has been added. Beta-eliazar dose will be reduced and discontinued, if possible, to avoid sedative affect and potential for exacerbation of depression. The need for substance abuse counseling was discussed with the patient and he appears eager to do so. He will need to be monitored for potential gastrointestinal bleeding given his alcohol use. If this were to ensue, anticoagulant therapy would not be safe and appropriate. Thank you for this consultation. We will be happy to follow along through his hospital course as needed. Cristhian Sinclair MD
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
--- NOTE | 2018-08-03 15:15 | CARD ---
APPROVED REPORT Date of service: 08/02/2018 EKG Measurement Heart [id number] <Conclusion> Atrial fibrillation with rapid ventricular response Inferior infarct, age Old? Anterolateral infarct, age undetermined Abnormal ECG
[2018-08-04] MEDS: diltiaZEM 300 mg/24 Hours CD Cap PO SCH (10:07)
--- NOTE | 2018-08-04 13:21 | PN ---
DATE: 08/04/2018 SUBJECTIVE: The patient was seen lying in bed on telemetry. He is more comfortable at the present time. His heart rate is controlled. He remains in atrial fibrillation. He is awaiting plans for alcohol detoxification and treatment program. His current medications include Ativan p.r.n., diltiazem 60 mg every 6 hours, Eliquis 5 mg b.i.d., Lasix 20 mg daily, Lexapro 20 mg daily, Xanax 1 mg t.i.d., and Zestril 20 mg daily. OBJECTIVE: GENERAL: He is obese middle-aged man. VITAL SIGNS: His blood pressure is 144/100 with a pulse of 82 in atrial fibrillation, respirations are 16, he is afebrile. HEENT: No JVD. CHEST: Bilateral scattered rhonchi. HEART: PMI displaced laterally with distant sounds noted. No pathological gallops noted. The rhythm is irregularly regular. ABDOMEN: Soft, nontender, obese with normoactive bowel sounds. EXTREMITIES: No edema. DIAGNOSTIC DATA: Morning blood work is pending. IMPRESSION: 1. Recurrent atrial fibrillation now with controlled ventricular rate likely secondary to acute alcohol intoxication. 2. Alcohol dependence, longstanding. 3. History of hypertension. 4. History of anxiety and depression. 5. Chronic obesity. RECOMMENDATIONS: Diltiazem will be switched to a long-acting preparation. Eliquis will be continued for now. Beta-eliazar will be avoided given its excessive sedating effect and potential for exacerbation of his depression. Definitive substance abuse counseling plans are being made. The need for control of his alcohol abuse as well as the need for weight loss was discussed with him. From a cardiac standpoint, he appears stable for transfer to an alcohol treatment center if deemed appropriate. I will continue to follow along and make further recommendations as appropriate. Cristhian Sinclair MD MTDD
--- NOTE | 2018-08-04 20:05 | CON ---
DATE: 08/04/2018 HISTORY OF PRESENT ILLNESS: The patient is a 52-year-old male with a history of mood spectrum disorder, anxiety as well as severe alcohol use disorder, who was admitted on the medical side related mostly to his alcohol withdrawals. Psychiatry was consulted for medication management and evaluation. I have reviewed Dr. Red's consultation of 11/2017, met with the patient at bedside, and reviewed the patient's notes. The patient is calm and coherent. He is aware that he has alcohol dependency. He knows the current month, year, location, and the current circumstances. He reports that he has been following up with Dr. Betancourt, taking medications prescribed by him for depression and anxiety. He does kind of go into depression and anxiety and is most off worse and he believes that this is related to his drinking and medical problems that he has been short of breath. He has been drinking heavily recently in the last week and a half and took time off of work so that his job requirements would not be affected. He is not suicidal. He is not homicidal. He is not hallucinating at this time. Generally coherent, however, he does become tangential and overinclusive at times but easily redirected. He denies any drug use and presents as fairly cooperative on the unit and there have been behavioral issues and he does not appear to be responding to internal stimuli. His insight is fair and his judgment is also fair. Vital signs and labs were reviewed. BAL was 226 on 08/02/2018. UDS is only positive for benzodiazepines. MEDICATIONS: Include Xanax 1 mg p.o. t.i.d., Ativan 1 mg IV every 6 hours p.r.n., Sonata 5 mg at bedtime scheduled, and Lexapro 20 mg daily. PSYCHIATRIC HISTORY: As noted above. The patient is in treatment with Dr. Betancourt and being prescribed Lexapro and Xanax which was restarted in the unit. The patient denies any history of suicide attempts or psychiatric admissions. SOCIAL HISTORY: The patient lives by himself, he is . He had two adult children. He has a girlfriend of three years that had gotten in the last year. He visits with her on the weekends in [place]. The patient has issues with drinking for a long time, however, he has escalated it a lot more in the last 5 years since he was . However, he was able to keep it under a control while during most of his marriage and the time that his kids were growing up. Also it has affected his work, but recently he took time off of work so that it would not affect his performance; however, he has been drinking nonstop during the prior weeks. The patient denies any acute concerns. IMPRESSION: Severe alcohol use disorder. Substance induced mood disorder. Substance induced anxiety disorder. Alcohol withdrawal. History of major depression and anxiety. RECOMMENDATIONS: The patient is well aware of options of naltrexone and Antabuse because they have not been beneficial for him in the past. He is well aware of AA recommendations and outpatient substance abuse recommendations and group treatments that are available. The patient continues to defer. I recommend that patient continue to follow up with Dr. Betancourt, take his medications, Lexapro and Xanax. The patient is aware of the risks associated with Xanax if he uses with alcohol use. Dr. Betancourt continues to adjust his medications as an outpatient. Medical team should inform Dr. Betancourt about the patient's current hospitalization and alcohol use if Dr. Betancourt is not already aware. The patient is not an acute danger to himself or others. He does no harm to himself. He does no harm to anybody else. He is psychotic. He has a drinking problem which he is reluctant to completely address at this time despite strong recommendations and warnings. Psychiatry will sign off. The patient is cleared from the psychiatric perspective. Lashell Bhatti MD
[2018-08-05 00:44] VITALS: RESP 20
[2018-08-05 05:38] VITALS: TEMP 97.9; O2SAT 95
[2018-08-05] MEDS: diltiaZEM 300 mg/24 Hours CD Cap PO SCH (09:26)
--- NOTE | 2018-08-05 09:55 | PN ---
DATE: 06/07/2018 SUBJECTIVE: The patient is seen lying in bed on telemetry. He is comfortable at the present time. His blood pressure, and heart rate are better controlled. CURRENT MEDICATIONS: Include Ativan p.r.n., diltiazem CD 300 mg daily, Eliquis 5 mg b.i.d., Lasix 20 mg daily, Lexapro, sonata, Xanax and Zestril. OBJECTIVE: GENERAL: He is a overweight middle-aged man. VITAL SIGNS: Blood pressure is 108/72, pulse of 70 in atrial flutter, respirations are 14. He is afebrile. HEENT: No JVD. CHEST: Few scattered rhonchi heard. HEART: PMI displaced laterally with systolic murmur at the left sternal border. ABDOMEN: Soft, obese, nontender with normoactive bowel sounds. EXTREMITIES: No edema. DIAGNOSTICS DATA: Blood work pending from this morning. IMPRESSION: 1. Recurrent atrial fibrillation with adequate heart rate control at the present time. 2. Longstanding alcohol abuse. 3. History of hypertension. 4. History of anxiety and depression. 5. Chronic obesity. RECOMMENDATIONS: Diltiazem will be used as a sole agent for heart rate control at this time. Beta-eliazar therapy will be avoided. Chronic anticoagulation with Eliquis should continue. Alcohol abstinence was recommended. Regular exercise and weight loss were advised as well. He is being evaluated for alcohol treatment program. At this time, telemetry monitoring can be discontinued. I will follow along as needed. Cristhian Sinclair MD MTDD
[2018-08-05 12:05] VITALS: BP 120/82; PULSE 81
== END 2018-08-05 12:48 | disposition home or self-care (01) | DRG 897 ==
LOC: ED 17:32 → ERH 19:17 → 2RNO 20:58
PROVIDERS: ADMIT Internal Medicine; ATTEND Internal Medicine
DX: F10.229 Alcohol dependence with intoxication, unspecified (principal); I48.0 Paroxysmal atrial fibrillation; F32.9 Major depressive disorder, single episode, unspecified; F41.9 Anxiety disorder, unspecified; I10 Essential (primary) hypertension; F10.239 Alcohol dependence with withdrawal, unspecified; F19.94 Other psychoactive substance use, unspecified with psychoactive substance-induced mood disorder; F90.9 Attention-deficit hyperactivity disorder, unspecified type; Y90.7 Blood alcohol level of 200-239 mg/100 ml; F17.210 Nicotine dependence, cigarettes, uncomplicated; E66.9 Obesity, unspecified; Z68.36 Body mass index [BMI] 36.0-36.9, adult; Z79.01 Long term (current) use of anticoagulants